=== PATIENT | male | born 1965 | race Caucasian/White ===

== ENCOUNTER 2023-08-25 06:36 | Day surgery (SDC) | payer OTHER, SELFPAY ==
[2023-08-10 08:55] LABS: Hematocrit 41.4 % (39.0-52.0); Hemoglobin 14.4 g/dL (13.0-18.0); Mean Corp Hgb Conc. 34.8 g/dL (33.0-37.0); Mean Corpuscular Hgb 29.3 pg (27.0-31.0); Mean Corpuscular Volume 84.3 fL (80.0-94.0); Mean Platelet Volume 9.4 fL (7.4-10.4); Platelet Count 222 10^3/uL (130-400); Red Blood Cell Count 4.91 10^6/uL (4.70-6.10); Red Cell Dist. Width 14.6 % (11.5-14.5); White Blood Cell Count 4.7 10^3/uL (4.8-10.8)
[2023-08-10 16:39] VITALS: BMI 26.5
[2023-08-23 10:20] VITALS: BMI 26.5
[2023-08-25] VITALS (7 sets, daily range): BP systolic 106–124; BP diastolic 69–81; BMI 26.5
[2023-08-25] MEDS: NORMOSOL-R 1000 IV (07:53)
[2023-08-25] MEDS: CELEBREX 200 MG PO (07:53)
[2023-08-25] MEDS: TYLENOL 1000 MG PO (07:54)
== END 2023-08-25 11:30 | disposition home or self-care (01) ==
LOC: SDS 06:36
PROVIDERS: ATTENDING PHYSICIAN Orthopaedic Surgery; FAMILY PHYSICIAN Internal Medicine
DX: S83.281A Other tear of lateral meniscus, current injury, right knee, initial encounter (principal); S83.231A Complex tear of medial meniscus, current injury, right knee, initial encounter; M23.000 Cystic meniscus, unspecified lateral meniscus, right knee; M94.261 Chondromalacia, right knee; X58.XXXA Exposure to other specified factors, initial encounter
CPT/HCPCS: 29881; 36415; 85027; 93005

== ENCOUNTER → 2023-12-01 06:22 | Outpatient (REF) | payer OTHER, SELFPAY ==
[2023-12-01 07:16] LABS: Urine Albumin Negative (Neg - Trace); Urine Bilirubin Negative (Negative); Urine Character Clear (Clear); Urine Color Yellow; Urine Glucose Negative (Negative); Urine Ketone Negative (Negative); Urine Leukocyte Negative (Negative); Urine Nitrite Negative (Negative); Urine Occult Blood 3+ (Negative); Urine Urobilinogen Negative (Neg - 1+)
[2023-12-01 07:27] LABS: Urine White Cell 0-2 /HPF (0-5)
[2023-12-01 07:49] LABS: ALT (SGPT) 34 U/L (0-50); AST (SGOT) 33 U/L (17-59); Albumin 4.9 g/dl (3.5-5.0); Alkaline Phosphatase 65 U/L (38-126); Blood Urea Nitrogen 20 mg/dl (9-20); Calcium 10.1 mg/dl (8.4-10.2); Carbon Dioxide 28 mmol/L (22-30); Chloride 100 mmol/L (98-107); Glucose 95 mg/dl (70-99); HDL Cholesterol 76 mg/dl; LDL Cholesterol, Calculated 111 mg/dl; Sodium 138 mmol/L (135-145); Total Bilirubin 0.8 mg/dl (0.2-1.3); Total Cholesterol 213 mg/dl (50-199); Total Protein 7.5 g/dl (6.3-8.2); Triglyceride 133 mg/dl (10-149); Very Low Density Lipoprotein 26 mg/dl (0-30); eGFR > 60.00
[2023-12-01 08:09] LABS: PSA, Total - Screen 1.08 ng/ml (0.0-4.0)
[2023-12-02 23:03] LABS: Lipoprotein a (Lp a) 9 mg/dL (<=29)
[2023-12-03 02:38] LABS: ANA, IgG Reflex to HEp-2 None Detected (None Detected)
[2023-12-03 03:08] LABS: Apolipoprotein B 116 mg/dL (66-133)
[2023-12-03 11:15] LABS: Intact PTH 34.5 pg/ml (13.6-85.8)
== END ==
LOC: REG 06:22
PROVIDERS: ATTENDING PHYSICIAN Ophthalmology; FAMILY PHYSICIAN Internal Medicine; OTHER PHYSICIAN Internal Medicine Cardiovascular Disease; REFERRING PHYSICIAN Specialist
DX: E21.0 Primary hyperparathyroidism (principal); E78.00 Pure hypercholesterolemia, unspecified; I25.10 Atherosclerotic heart disease of native coronary artery without angina pectoris; N41.1 Chronic prostatitis; H15.002 Unspecified scleritis, left eye
CPT/HCPCS: 36415; 80053; 80061; 81003; 81015; 82172; 83695; 83970; 86038; G0103

== ENCOUNTER → 2024-06-13 06:23 | Outpatient (REF) | payer OTHER, SELFPAY ==
[2024-06-13 07:29] LABS: % Basophils 0.4 % (0-2); % Eosinophils 2.2 % (0-6); % Immature Granulocytes 0.2 % (0-0.5); % Lymphocytes 33.7 % (20.5-51.1); % Monocytes 7.8 % (1.7-9.3); % Neutrophils 55.7 % (42.2-75.2); Absolute Eosinophils 0.1 10^3/uL (0-0.7); Absolute Lymphocytes 1.6 10^3/uL (1.2-3.4); Absolute Monocytes 0.4 10^3/uL (0.1-0.6); Absolute Neutrophils 2.6 10^3/uL (1.4-6.5); Hemoglobin 14.9 g/dL (13.0-18.0); Mean Corp Hgb Conc. 34.7 g/dL (33.0-37.0); Mean Corpuscular Volume 83.8 fL (80.0-94.0); Mean Platelet Volume 9.3 fL (7.4-10.4); Nucleated Red Blood Cells % 0 % (-); Platelet Count 195 10^3/uL (130-400); Red Blood Cell Count 5.13 10^6/uL (4.70-6.10); Red Cell Dist. Width 14.1 % (11.5-14.5); White Blood Cell Count 4.6 10^3/uL (4.8-10.8)
[2024-06-13 07:40] LABS: Urine Albumin Negative (Neg - Trace); Urine Bilirubin Negative (Negative); Urine Character Clear (Clear); Urine Color Straw; Urine Glucose Negative (Negative); Urine Ketone Negative (Negative); Urine Leukocyte Negative (Negative); Urine Nitrite Negative (Negative); Urine Occult Blood 3+ (Negative); Urine Urobilinogen Negative (Neg - 1+)
[2024-06-13 07:47] LABS: Urine Bacteria Few (Negative); Urine Squamous Cell 0-2 /LPF (Few); Urine White Cell 0-2 /HPF (0-5)
[2024-06-13 08:07] LABS: ALT (SGPT) 38 U/L (0-50); AST (SGOT) 36 U/L (17-59); Albumin 4.6 g/dl (3.5-5.0); Alkaline Phosphatase 63 U/L (38-126); Blood Urea Nitrogen 19 mg/dl (9-20); Calcium 9.8 mg/dl (8.4-10.2); Carbon Dioxide 26 mmol/L (22-30); Chloride 102 mmol/L (98-107); Glucose 90 mg/dl (70-99); HDL Cholesterol 62 mg/dl; LDL Cholesterol, Calculated 79 mg/dl; Potassium 4.3 mmol/L (3.5-5.1); Sodium 141 mmol/L (135-145); Total Bilirubin 0.7 mg/dl (0.2-1.3); Total Cholesterol 163 mg/dl (50-199); Total Protein 6.8 g/dl (6.3-8.2); Triglyceride 114 mg/dl (10-149); Very Low Density Lipoprotein 22 mg/dl (0-30); eGFR > 60.00
[2024-06-13 08:16] LABS: Vitamin D, 25-OH*** 35.1 ng/mL (30-80)
[2024-06-13 08:30] LABS: PSA, Total - Screen 0.85 ng/ml (0.0-4.0); TSH 0.79 uIU/ml (0.47-4.68)
[2024-06-13 08:39] LABS: Glycohemoglobin (HgbA1c) 5.2 % (4.0-5.6)
[2024-06-13 10:02] LABS: Intact PTH 35.8 pg/ml (13.6-85.8)
[2024-06-13 23:38] LABS: IgA < 50 mg/dl (70-400)
[2024-06-15 10:22] LABS: % Free Testosterone 1.5 % (1.6-2.9); Free Testosterone 71 pg/mL (47-244); Sex Hormone Binding Globulin 49 nmol/L (19-76); Total Testosterone 479 ng/dL (300-720)
[2024-06-15 10:23] LABS: Apolipoprotein B 83 mg/dL (66-133)
== END ==
LOC: REG 06:23
PROVIDERS: ATTENDING PHYSICIAN Ophthalmology; FAMILY PHYSICIAN Internal Medicine; REFERRING PHYSICIAN Internal Medicine Cardiovascular Disease
DX: I25.10 Atherosclerotic heart disease of native coronary artery without angina pectoris (principal); N52.9 Male erectile dysfunction, unspecified; E78.00 Pure hypercholesterolemia, unspecified; I10 Essential (primary) hypertension; R40.1 Stupor; E21.0 Primary hyperparathyroidism
CPT/HCPCS: 36415; 80053; 80061; 81003; 81015; 82172; 82306; 82784; 83036; 83970; 84270; 84402; 84403; 84443; 85025; G0103

== ENCOUNTER → 2025-01-08 06:32 | Outpatient (REF) | payer OTHER, SELFPAY ==
[2025-01-08 08:12] LABS: ALT (SGPT) 43 U/L (0-50); AST (SGOT) 34 U/L (17-59); Albumin 4.6 g/dl (3.5-5.0); Alkaline Phosphatase 71 U/L (38-126); Blood Urea Nitrogen 20 mg/dl (9-20); Calcium 9.7 mg/dl (8.4-10.2); Carbon Dioxide 26 mmol/L (22-30); Chloride 106 mmol/L (98-107); Glucose 95 mg/dl (70-99); HDL Cholesterol 69 mg/dl; LDL Cholesterol, Calculated 93 mg/dl; Potassium 4.4 mmol/L (3.5-5.1); Sodium 140 mmol/L (135-145); Total Bilirubin 0.7 mg/dl (0.2-1.3); Total Cholesterol 190 mg/dl (50-199); Total Protein 6.6 g/dl (6.3-8.2); Triglyceride 144 mg/dl (10-149); Very Low Density Lipoprotein 28 mg/dl (0-30); eGFR > 60.00
[2025-01-08 08:33] LABS: Intact PTH 45.2 pg/ml (13.6-85.8)
[2025-01-08 08:34] LABS: Glycohemoglobin (HgbA1c) 5.3 % (4.0-5.6)
[2025-01-10 03:50] LABS: Apolipoprotein B 91 mg/dL (66-133)
== END ==
LOC: REG 06:32
PROVIDERS: ATTENDING PHYSICIAN Ophthalmology; FAMILY PHYSICIAN Internal Medicine Cardiovascular Disease
DX: E78.00 Pure hypercholesterolemia, unspecified (principal); E21.0 Primary hyperparathyroidism; I25.10 Atherosclerotic heart disease of native coronary artery without angina pectoris
CPT/HCPCS: 36415; 80053; 80061; 82172; 83036; 83970

== ENCOUNTER → 2025-04-30 06:17 | Outpatient (REF) | payer OTHER, SELFPAY ==
[2025-04-30 07:36] LABS: Urine Character Clear (Clear)
[2025-04-30 07:38] LABS: Hematocrit 42.3 % (39.0-52.0); Hemoglobin 14.2 g/dL (13.0-18.0); Mean Corp Hgb Conc. 33.6 g/dL (33.0-37.0); Mean Corpuscular Volume 88.3 fL (80.0-94.0); Nucleated Red Blood Cells % 0 % (-); Platelet Count 195 10^3/uL (130-400); Red Cell Dist. Width 14.5 % (11.5-14.5)
[2025-04-30 08:16] LABS: Urine Squamous Cell 0-2 /LPF (Few)
[2025-04-30 09:08] LABS: Glycohemoglobin (HgbA1c) 5.2 % (4.0-5.6)
[2025-04-30 09:32] LABS: ALT (SGPT) 38 U/L (0-50); AST (SGOT) 31 U/L (17-59); Albumin 4.7 g/dl (3.5-5.0); Alkaline Phosphatase 60 U/L (38-126); Blood Urea Nitrogen 23 mg/dl (9-20); Calcium 9.7 mg/dl (8.4-10.2); Carbon Dioxide 24 mmol/L (22-30); Chloride 107 mmol/L (98-107); Glucose 87 mg/dl (70-99); HDL Cholesterol 62 mg/dl; LDL Cholesterol, Calculated 91 mg/dl; Potassium 4.3 mmol/L (3.5-5.1); Sodium 139 mmol/L (135-145); Total Protein 6.8 g/dl (6.3-8.2); Very Low Density Lipoprotein 22 mg/dl (0-30); eGFR > 60.00
[2025-04-30 12:00] LABS: PSA, Total - Screen 1.50 ng/ml (0.0-4.0)
== END ==
LOC: REG 06:17
PROVIDERS: ATTENDING PHYSICIAN Ophthalmology; FAMILY PHYSICIAN Internal Medicine; OTHER PHYSICIAN Internal Medicine Cardiovascular Disease
DX: E78.00 Pure hypercholesterolemia, unspecified (principal); E88.810 Metabolic syndrome; I25.10 Atherosclerotic heart disease of native coronary artery without angina pectoris; E21.0 Primary hyperparathyroidism
CPT/HCPCS: 36415; 80053; 80061; 81003; 81015; 82172; 83036; 83970; 84443; 85025; G0103